=== PATIENT | male | born 1990 | race Caucasian/White ===

== ENCOUNTER 2022-06-09 12:17 | Inpatient (IN) | payer MEDICAID, SELFPAY ==
[~2022-06-09] VITALS: Ht 170.2 cm; Wt 92.0 kg
[2022-06-09 13:38] LABS: HEMATOCRIT 42.4 % (42.0-52.0); MEAN CORPUSCULAR HEMOGLOBIN 27.8 pg (27.0-33.0); MEAN CORPUSCULAR VOLUME 84.1 fl (80.0-96.0); PLATELET COUNT, AUTOMATED 350 10^3/uL (150-450); RED BLOOD COUNT 5.04 10^6/uL (4.30-6.10); WHITE BLOOD COUNT 12.3 10^3/uL (4.0-10.0)
[2022-06-09 14:24] LABS: ACETAMINOPHEN LEVEL < 2.0 UG/ML (10.0-30.0); ALBUMIN 3.4 GM/DL (3.2-5.2); ALT/SGPT 30 U/L (12-78); BILIRUBIN,DIRECT < 0.1 MG/DL (0.0-0.2); BILIRUBIN,TOTAL 0.3 MG/DL (0.2-1.0); BLOOD UREA NITROGEN 9 MG/DL (7-18); CALCIUM LEVEL 9.3 MG/DL (8.5-10.1); CARBON DIOXIDE LEVEL 23 MEQ/L (21-32); CHLORIDE LEVEL 110 MEQ/L (98-107); CREATININE FOR GFR 0.79 MG/DL (0.70-1.30); ETHYL ALCOHOL (ETHANOL) < 0.003 % (0.000-0.010); GLOMERULAR FILTRATION RATE > 60.0 (>60); GLUCOSE, FASTING 84 MG/DL (70-100); POTASSIUM SERUM 4.1 MEQ/L (3.5-5.1); SALICYLATE LEVEL < 1.7 MG/DL (5.0-30.0); SODIUM LEVEL 138 MEQ/L (136-145); THYROID STIMULATING HORMONE 0.779 uIU/ML (0.358-3.740); TOTAL PROTEIN 7.8 GM/DL (6.4-8.2)
[2022-06-09 14:29] LABS: RSV AMPLIFICATION NEGATIVE (NEGATIVE)
[2022-06-09 18:05] LABS: AMPHETAMINES LEVEL URINE NEGATIVE (NEGATIVE); BARBITURATES URINE NEGATIVE (NEGATIVE); BENZODIAZEPINES URINE NEGATIVE (NEGATIVE); CANNABINOIDS URINE NEGATIVE (NEGATIVE); COCAINE METABOLITE URINE NEGATIVE (NEGATIVE); METHADONE URINE NEGATIVE (NEGATIVE); OPIATES URINE NEGATIVE (NEGATIVE); PHENCYCLIDINE URINE NEGATIVE (NEGATIVE)
[2022-06-09] MEDS ORDERED: HOME MED LIST COMPLETE! XX SCH (23:10)
[2022-06-10] MEDS ORDERED: traZODone 50 MG TAB PO PRN (13:25)
[2022-06-10] MEDS ORDERED: OLANZapine ORAL DISINTEGRATING TAB 5MG PO PRN (13:25)
[2022-06-10] MEDS ORDERED: diphenhydrAMINE 25MG CAP PO PRN (13:25)
[2022-06-10] MEDS ORDERED: MAALOX 30 ML SUSP *UDC PO PRN (13:25)
[2022-06-10] MEDS ORDERED: IBUPROFEN 400MG TAB PO PRN (13:25)
[2022-06-10] MEDS ORDERED: MOM 30ML SUSPENSION UDC PO PRN (13:25)
[2022-06-10] MEDS: NICOTINE 21MG/24HR 1 EA TRANSDERMAL TD SCH (14:31)
[2022-06-10 18:05] VITALS: BP 166/101
[2022-06-10] MEDS ORDERED: COMBIVENT RESPIMAT 100-20MCG INHALER 4GM INH PRN (18:30)
[2022-06-10] MEDS ORDERED: guaiFENesin DM LIQ 10ML UD PO PRN (18:30)
[2022-06-10 19:06] LABS: BASO % 0.4 % (0.0-1.0); EOS # 0.1 10^3/uL (0.0-0.5); EOS % 0.9 % (0.0-3.0); HEMATOCRIT 42.7 % (42.0-52.0); HEMOGLOBIN 14.1 g/dl (13.5-17.5); LYMPH # 2.4 10^3/uL (1.5-5.0); LYMPH % 23.1 % (24.0-44.0); MEAN CORPUSCULAR HEMOGLOBIN 27.6 pg (27.0-33.0); MEAN CORPUSCULAR VOLUME 83.6 fl (80.0-96.0); MONO # 0.6 10^3/uL (0.0-0.8); MONO % 5.3 % (2.0-8.0); NEUTROPHILS # 7.3 10^3/uL (1.5-8.5); NEUTROPHILS % 69.9 % (36.0-66.0); PLATELET COUNT, AUTOMATED 384 10^3/uL (150-450); RED BLOOD COUNT 5.11 10^6/uL (4.30-6.10); WHITE BLOOD COUNT 10.4 10^3/uL (4.0-10.0)
[2022-06-10 19:31] LABS: BLOOD UREA NITROGEN 12 MG/DL (7-18); CALCIUM LEVEL 9.5 MG/DL (8.5-10.1); CARBON DIOXIDE LEVEL 26 MEQ/L (21-32); CHLORIDE LEVEL 108 MEQ/L (98-107); CREATININE FOR GFR 0.84 MG/DL (0.70-1.30); GLOMERULAR FILTRATION RATE > 60.0 (>60); GLUCOSE, FASTING 109 MG/DL (70-100); MAGNESIUM LEVEL 2.2 MG/DL (1.8-2.4); POTASSIUM SERUM 3.5 MEQ/L (3.5-5.1); SODIUM LEVEL 138 MEQ/L (136-145)
[2022-06-10] MEDS ORDERED: CEPACOL LOZENGE PO PRN (20:20)
[2022-06-10] MEDS: guaiFENesin ER 600 MG TAB PO SCH (21:56)
[2022-06-11 06:24] VITALS: BP 132/81
[2022-06-11] MEDS: NICOTINE 21MG/24HR 1 EA TRANSDERMAL TD SCH (09:00)
[2022-06-11] MEDS ORDERED: INFLUENZA QUADRIVALENT PF VACCINE 0.5ML SYRINGE IM.IMMUN ONE (09:00)
[2022-06-11] MEDS: guaiFENesin ER 600 MG TAB PO SCH ×2 (09:24→21:35)
[2022-06-11] MEDS: CETIRIZINE (ZyrTEC) 10 MG TAB PO SCH (15:46)
[2022-06-11 16:22] VITALS: BP 137/89
[2022-06-12 06:37] VITALS: BP 127/94
[2022-06-12] MEDS: NICOTINE 21MG/24HR 1 EA TRANSDERMAL TD SCH (07:53)
[2022-06-12] MEDS: CETIRIZINE (ZyrTEC) 10 MG TAB PO SCH (07:54)
[2022-06-12] MEDS: guaiFENesin ER 600 MG TAB PO SCH ×2 (07:54→20:40)
[2022-06-12] MEDS: SERTRALINE HCL 25 MG TABLET PO SCH (13:21)
[2022-06-12 16:22] VITALS: BP 109/73
[2022-06-13 06:43] VITALS: BP 121/85
[2022-06-13 08:31] LABS: ALBUMIN 3.2 GM/DL (3.2-5.2); BILIRUBIN,DIRECT 0.1 MG/DL (0.0-0.2); BILIRUBIN,TOTAL 0.5 MG/DL (0.2-1.0); CHOLESTEROL RISK RATIO 3.685 (<5); TOTAL PROTEIN 7.5 GM/DL (6.4-8.2)
[2022-06-13] MEDS: guaiFENesin ER 600 MG TAB PO SCH ×2 (08:59→20:41)
[2022-06-13] MEDS: SERTRALINE HCL 25 MG TABLET PO SCH (08:59)
[2022-06-13] MEDS: CETIRIZINE (ZyrTEC) 10 MG TAB PO SCH (08:59)
[2022-06-13] MEDS: NICOTINE 21MG/24HR 1 EA TRANSDERMAL TD SCH (09:00)
[2022-06-13 18:00] VITALS: BP 151/86
[2022-06-13] MEDS: ARIPiprazole 2 MG TAB PO SCH (20:41)
[2022-06-14 06:41] VITALS: BP 145/67
[2022-06-14] MEDS: NICOTINE 21MG/24HR 1 EA TRANSDERMAL TD SCH (09:00)
[2022-06-14] MEDS: CETIRIZINE (ZyrTEC) 10 MG TAB PO SCH (09:30)
[2022-06-14] MEDS: SERTRALINE HCL 25 MG TABLET PO SCH (09:30)
[2022-06-14] MEDS: guaiFENesin ER 600 MG TAB PO SCH ×2 (09:30→21:27)
[2022-06-14 18:23] VITALS: BP 131/86
[2022-06-14] MEDS: ARIPiprazole 2 MG TAB PO SCH (21:27)
[2022-06-14] MEDS: hydrOXYzine 50 MG TAB PO PRN (21:27)
[2022-06-15 06:49] VITALS: BP 148/80
[2022-06-15] MEDS: SERTRALINE HCL 25 MG TABLET PO SCH (08:26)
[2022-06-15] MEDS: guaiFENesin ER 600 MG TAB PO SCH ×2 (08:26→21:09)
[2022-06-15] MEDS: CETIRIZINE (ZyrTEC) 10 MG TAB PO SCH (08:26)
[2022-06-15] MEDS: NICOTINE 21MG/24HR 1 EA TRANSDERMAL TD SCH (08:27)
[2022-06-15 18:15] VITALS: BP 140/82
[2022-06-15] MEDS: hydrOXYzine 50 MG TAB PO PRN (21:09)
[2022-06-15] MEDS: ARIPiprazole 2 MG TAB PO SCH (21:09)
[2022-06-16 06:38] VITALS: BP 134/84
[2022-06-16] MEDS: NICOTINE 21MG/24HR 1 EA TRANSDERMAL TD SCH (08:40)
[2022-06-16] MEDS: guaiFENesin ER 600 MG TAB PO SCH ×2 (08:42→22:13)
[2022-06-16] MEDS: SERTRALINE HCL 25 MG TABLET PO SCH (08:42)
[2022-06-16] MEDS: CETIRIZINE (ZyrTEC) 10 MG TAB PO SCH (08:42)
[2022-06-16 17:59] VITALS: BP 140/92
[2022-06-16] MEDS: hydrOXYzine 50 MG TAB PO PRN (22:13)
[2022-06-16] MEDS: ARIPiprazole 2 MG TAB PO SCH (22:13)
[2022-06-17 07:04] VITALS: BP 170/90
[2022-06-17] MEDS: SERTRALINE HCL 25 MG TABLET PO SCH (08:07)
[2022-06-17] MEDS: CETIRIZINE (ZyrTEC) 10 MG TAB PO SCH (08:07)
[2022-06-17] MEDS: guaiFENesin ER 600 MG TAB PO SCH ×2 (08:07→20:56)
[2022-06-17] MEDS: NICOTINE 21MG/24HR 1 EA TRANSDERMAL TD SCH (08:08)
[2022-06-17 18:04] VITALS: BP 139/78
[2022-06-17] MEDS: hydrOXYzine 50 MG TAB PO PRN (20:56)
[2022-06-17] MEDS: ARIPiprazole 2 MG TAB PO SCH (20:57)
[2022-06-18 06:44] VITALS: BP 148/84
[2022-06-18] MEDS: NICOTINE 21MG/24HR 1 EA TRANSDERMAL TD SCH (08:27)
[2022-06-18] MEDS: SERTRALINE 100 MG TAB PO SCH (08:29)
[2022-06-18] MEDS: hydrOXYzine 50 MG TAB PO PRN ×2 (08:29→20:16)
[2022-06-18] MEDS: CETIRIZINE (ZyrTEC) 10 MG TAB PO SCH (08:29)
[2022-06-18] MEDS: guaiFENesin ER 600 MG TAB PO SCH ×2 (08:29→20:17)
[2022-06-18 18:11] VITALS: BP 132/88
[2022-06-18] MEDS: ARIPiprazole 2 MG TAB PO SCH (20:16)
[2022-06-19 06:59] VITALS: BP 146/80
[2022-06-19] MEDS: NICOTINE 21MG/24HR 1 EA TRANSDERMAL TD SCH (08:22)
[2022-06-19] MEDS: guaiFENesin ER 600 MG TAB PO SCH ×2 (08:43→21:00)
[2022-06-19] MEDS: CETIRIZINE (ZyrTEC) 10 MG TAB PO SCH (08:44)
[2022-06-19] MEDS: SERTRALINE 100 MG TAB PO SCH (08:44)
[2022-06-19 18:00] VITALS: BP 132/90
[2022-06-19] MEDS: hydrOXYzine 50 MG TAB PO PRN (21:05)
[2022-06-19] MEDS: ARIPiprazole 2 MG TAB PO SCH (21:05)
[2022-06-20 06:59] VITALS: BP 130/92
[2022-06-20] MEDS: NICOTINE 21MG/24HR 1 EA TRANSDERMAL TD SCH (07:54)
[2022-06-20] MEDS: guaiFENesin ER 600 MG TAB PO SCH ×2 (07:54→20:20)
[2022-06-20] MEDS: CETIRIZINE (ZyrTEC) 10 MG TAB PO SCH (07:56)
[2022-06-20] MEDS: SERTRALINE 100 MG TAB PO SCH (07:56)
[2022-06-20 16:17] VITALS: BP 134/86
[2022-06-20] MEDS: ARIPiprazole 2 MG TAB PO SCH (20:20)
[2022-06-20] MEDS: hydrOXYzine 50 MG TAB PO PRN (20:21)
[2022-06-21 06:25] VITALS: BP 144/90
[2022-06-21] MEDS: NICOTINE 21MG/24HR 1 EA TRANSDERMAL TD SCH (08:09)
[2022-06-21] MEDS ORDERED: ZOLO100T PO (08:10)
[2022-06-21] MEDS ORDERED: CETI10TA PO (08:10)
[2022-06-21] MEDS ORDERED: HYDR50TA70 PO (08:10)
[2022-06-21] MEDS ORDERED: ABIL1TAB13 PO (08:10)
[2022-06-21] MEDS: SERTRALINE 100 MG TAB PO SCH (08:11)
[2022-06-21] MEDS: hydrOXYzine 50 MG TAB PO PRN (08:11)
[2022-06-21] MEDS: guaiFENesin ER 600 MG TAB PO SCH (08:11)
[2022-06-21] MEDS: CETIRIZINE (ZyrTEC) 10 MG TAB PO SCH (08:11)
== END 2022-06-21 11:54 | disposition home or self-care (01) | DRG 751 ==
LOC: EDBD 12:17 → M ED 12:17 → M ED INP 06-10 13:23 → M PSY 06-10 16:25
PROVIDERS: ADMIT Psychiatry & Neurology Psychiatry; ATTEND Psychiatry & Neurology Psychiatry
DX: F32.3 Major depressive disorder, single episode, severe with psychotic features (principal); I10 Essential (primary) hypertension; R45.851 Suicidal ideations; F43.10 Post-traumatic stress disorder, unspecified; F41.1 Generalized anxiety disorder; F12.10 Cannabis abuse, uncomplicated; J40 Bronchitis, not specified as acute or chronic; F17.200 Nicotine dependence, unspecified, uncomplicated; F60.89 Other specific personality disorders; Z62.810 Personal history of physical and sexual abuse in childhood; Z63.0 Problems in relationship with spouse or partner; Z59.00 Homelessness unspecified; Z91.51 Personal history of suicidal behavior; Z63.8 Other specified problems related to primary support group

== ENCOUNTER 2022-11-21 08:13 | Emergency (ER) | payer MEDICAID, OTHER ==
[~2022-11-21] VITALS: Ht 170.2 cm; Wt 115.1 kg
[~2022-11-21 08:13] MED LIST: ABIL1TAB13 PO; CETI10TA PO; HYDR50TA70 PO; ZOLO100T PO
[2022-11-21] MEDS ORDERED: ONDANSETRON 4MG ORAL DISINTEGRATING TAB PO ONE (08:40)
[2022-11-21] MEDS ORDERED: ONDA4TAB6 PO (10:05)
[2022-11-21 10:19] VITALS: BP 119/78
== END 2022-11-21 10:22 | disposition home or self-care (01) ==
LOC: M ED 08:13
DX: R19.7 Diarrhea, unspecified (principal); R11.10 Vomiting, unspecified; F32.A Depression, unspecified; Z20.828 Contact with and (suspected) exposure to other viral communicable diseases

== ENCOUNTER 2023-03-02 16:37 | Emergency (ER) | payer OTHER ==
[~2023-03-02] VITALS: Ht 170.2 cm; Wt 123.4 kg
[~2023-03-02 16:37] MED LIST changes: +ONDA4TAB6 PO
[2023-03-02] MEDS ORDERED: ACET-839 PO (16:58)
[2023-03-02] MEDS ORDERED: diazePAM 5MG TABLET PO ONE (18:20)
[2023-03-02] MEDS ORDERED: KETOROLAC 30 MG/ML 1ML VIAL IM ONE (18:20)
[2023-03-02] MEDS ORDERED: LIDOCAINE 5% (LIDODERM) PATCH TD ONE (18:20)
[2023-03-02] MEDS ORDERED: CYCL-707 PO (19:40)
[2023-03-02] MEDS ORDERED: LIDO5DIS41 TD (19:40)
[2023-03-02 19:45] VITALS: BP 136/82; TEMP 97.3; O2SAT 99
== END 2023-03-02 19:47 | disposition home or self-care (01) ==
LOC: M ED 16:37
DX: M51.87 Other intervertebral disc disorders, lumbosacral region (principal); M54.50 Low back pain, unspecified; G89.29 Other chronic pain; F17.290 Nicotine dependence, other tobacco product, uncomplicated
CPT/HCPCS: 72131; 96372; 99283; J1885

== ENCOUNTER 2023-03-14 11:13 | Emergency (ER) | payer OTHER ==
[~2023-03-14] VITALS: Ht 170.2 cm; Wt 123.8 kg
[~2023-03-14 11:13] MED LIST changes: +ACET-839 PO; +CYCL-707 PO; +LIDO5DIS41 TD
[2023-03-14] MEDS ORDERED: ACETAMINOPHEN 325 MG TAB PO ONE (13:40)
[2023-03-14] MEDS ORDERED: KETOROLAC 60MG 2ML VIAL IM ONE (13:40)
[2023-03-14] MEDS ORDERED: NAPR-837 PO (13:44)
[2023-03-14] MEDS ORDERED: CYCL-707 PO (13:44)
[2023-03-14] MEDS ORDERED: MEDR4PAK PO (13:44)
[2023-03-14 14:02] VITALS: BP 124/75; TEMP 96.8; O2SAT 99
== END 2023-03-14 14:03 | disposition home or self-care (01) ==
LOC: M ED 11:13
DX: S39.012A Strain of muscle, fascia and tendon of lower back, initial encounter (principal); X50.0XXA Overexertion from strenuous movement or load, initial encounter; Y93.G1 Activity, food preparation and clean up; Y99.0 Civilian activity done for income or pay; M51.37 Other intervertebral disc degeneration, lumbosacral region; F17.200 Nicotine dependence, unspecified, uncomplicated
CPT/HCPCS: 96372; 99283; J1885

== ENCOUNTER 2023-10-21 03:18 | Emergency (ER) | payer OTHER ==
[~2023-10-21] VITALS: Ht 170.2 cm; Wt 129.0 kg
[~2023-10-21 03:18] MED LIST changes: +MEDR4PAK PO; +NAPR-837 PO
[2023-10-21 03:19] VITALS: BP 164/102; TEMP 97.4; O2SAT 97
== END 2023-10-21 05:30 | disposition left against medical advice (07) ==
LOC: M ED 03:18
DX: Z53.21 Procedure and treatment not carried out due to patient leaving prior to being seen by health care provider (principal)